=== PATIENT | male | born 1970 | race Caucasian/White ===

== ENCOUNTER 2025-06-23 12:24 | Outpatient (REF) | payer BC, SELFPAY ==
[2025-06-23 12:40] VITALS: BP 137/93; BP_SYST 74
[2025-06-23 14:10] LABS: CSF Color Colorless; CSF Tube # Clarity Clear; Red Cell Count/CSF 20 mm^3; Red Cell Count/CSF 21 mm^3; White Blood Cell Count/CSF 0 mm^3 (0-5); White Cell Count/CSF 1 mm^3 (0-5)
[2025-06-23 14:35] VITALS: BP 136/89
[2025-06-23 15:00] VITALS: BP 133/87
[2025-06-23 15:15] VITALS: BP 139/93
== END 2025-06-23 15:40 | disposition home or self-care (01) ==
LOC: RADI 12:24
PROVIDERS: ATTENDING PHYSICIAN Student in an Organized Health Care Education/Training Program; FAMILY PHYSICIAN Family Medicine
DX: G61.81 Chronic inflammatory demyelinating polyneuritis (principal); R53.1 Weakness
CPT/HCPCS: 62328; 82945; 84157; 89051